=== PATIENT | female | born 1965 | race African-American/Black ===

== ENCOUNTER 2017-02-03 09:04 | Emergency (ER) | payer SELFPAY ==
[2017-02-03 09:07] VITALS: BP 154/82; BMI 33.2
--- NOTE | 2017-02-03 09:28 | DR.DIARMA ---
HPI - Time seen Time seen: 09:15 - PCP Primary Care Physician: Selina FREED - Complaint Chief Complaint Doctor Comments: Patient states that she has pancreatitis. She stayed off work last week due to diarrhea and went back today. She admits to diarrhea x3 and epigastric pain and not feeling well today. She denies fever or vomiting but admits to nausea. She states that she has had pancreatitis since 2005, EGI done by dr Frazier in and . She is on no medication at this time. Chief Complaint:: PT. C/O NAUSEA, ABDOMINAL PAIN, AND DIARRHEA. DIARRHEA BEGAN SUNDAY. - Source History Provided: Patient - Mode of Arrival Mode of Arrival: Ambulatory - Timing Onset of Chief Complaint: 01/30/17 PMH - PMH Past Medical History: Yes Past Medical History: Anemia, Arthritis, Diabetes, Dyslipidemia, GERD, Hypertension Past Medical History Comment: PANCREATITIS Past Surgical History: Yes Surgical History: Cholecystectomy, Ortho Surgery - Family History History of Family Medical Conditions: Yes Family Medical History: Diabetes Mellitus, Cancer, [place], Hypertension - Social History Does patient currently use any type of tobacco product: Yes Have you used tobacco products in the last 12 months: Yes Type of Tobacco Use: Cigarettes Does any household member use tobacco: No Alcohol Use: None Do you use any recreational Drugs:: No Lives With: Family Lives Where: Home - infectious screening In the last 2 months have you had wt loss of >10#?: NO Have you had fever, night sweats or hemotysis?: No Have you traveled outside the country in the last 6 months?: No Isolation: Standard PE - Vital Signs Vitals: Temperature 98.6 F Pulse Rate 107 Respiratory Rate 17 Blood Pressure [Left Arm] 136/66 Blood Pressure [Right Arm] 142/65 Blood Pressure 154/82 O2 Sat by Pulse Oximetry 100 ROR - Labs Reviewed Result Diagrams: 02/03/17 09:35 02/03/17 09:35 - Discharge Plan Condition: Stable - Follow ups/Referrals Follow ups/Referrals: POLY FREED [Primary Care Provider] - 3 days - Instructions
[2017-02-03] MEDS ORDERED: NS 1000 ML 1,000 ML IV ONE (09:30)
[2017-02-03] MEDS ORDERED: MORPHINE SULFATE INJ 4 MG IVP ONE ×2 (09:30→10:45)
[2017-02-03] MEDS ORDERED: NS 1000 ML 1,000 ML ONE (09:31)
[2017-02-03] MEDS ORDERED: MORPHINE SULFATE INJ 4 MG ONE ×2 (09:32→10:46)
[2017-02-03] MEDS ORDERED: ZOFRAN INJ 4 MG VIAL ONE (09:40)
[2017-02-03] MEDS ORDERED: ZOFRAN INJ 4 MG VIAL IVP ONE (09:42)
[2017-02-03 09:44] LABS: BASOPHILS % (AUTO) 0.7 % (0.2-1.0); EOSINOPHILS # (AUTO) 0.2 x10^3/uL (0.0-0.2); EOSINOPHILS % (AUTO) 2.4 % (0.9-2.9); HEMOGLOBIN 14.6 g/dL (12.0-16.0); LYMPHOCYTES # (AUTO) 1.6 X10^3/uL (1.3-2.9); LYMPHOCYTES % (AUTO) 24.5 % (21.0-51.0); MEAN CORPUSCULAR HEMOGLOBIN 23.2 pg (27.0-34.0); MEAN CORPUSCULAR HGB CONC 32.4 g/dL (33.0-35.0); MEAN CORPUSCULAR VOLUME 71.6 fL (80.0-100.0); MEAN PLATELET VOLUME 8.6 fL (7.4-11.0); MONOCYTES # (AUTO) 0.5 x10^3/uL (0.3-0.8); MONOCYTES % (AUTO) 7.9 % (0.0-13.0); NEUTROPHILS # (AUTO) 4.3 x10^3/uL (2.2-4.8); NEUTROPHILS % (AUTO) 64.5 % (42.0-75.0); PLATELET COUNT 328 X10^3/uL (150.0-450.0); RED BLOOD COUNT 6.28 X10^6/uL (3.5-5.4); RED CELL DISTRIBUTION WIDTH 14.4 % (11.6-16.5); WHITE BLOOD COUNT 6.7 X10^3/uL (3.6-10.0)
[2017-02-03 10:11] LABS: HYPOCHROMASIA SLIGHT; PLATELET MORPHOLOGY COMMENT NORMAL (NORMAL)
[2017-02-03 10:29] LABS: ALANINE AMINOTRANSFERASE 18 Units/L (12-78); ALBUMIN 3.7 g/dL (3.4-5.0); ALKALINE PHOSPHATASE 140 Units/L (46-116); AMYLASE 57 Units/L (25-115); ASPARTATE AMINO TRANSFERASE 11 Units/L (15-37); BLOOD UREA NITROGEN 14 mg/dL (7-18); CALCIUM 8.8 mg/dL (8.5-10.1); CARBON DIOXIDE 24.3 mmol/L (21-32); CHLORIDE 105 mmol/L (98-107); COR NA(FOR HYPERGLY) 146 mmol/L (136-145); CREATININE 0.78 mg/dL (0.55-1.02); GLUCOSE 250 mg/dL (65-99); LIPASE 99 Units/L (73-393); SODIUM 142 mmol/L (136-145); TOTAL PROTEIN 8.2 g/dL (6.4-8.2); eGFR BLACK RACES > 60 (>60); eGFR NON BLACK RACES > 60 (>60)
[2017-02-03] MEDS ORDERED: NS 100 ML IV + SPIKE MINIBAG* 100 ML IV ONE (10:53)
--- NOTE | 2017-02-03 15:09 | CT ---
The CT abdomen and pelvis with contrast Indication: Abdominal pain Comparison: 10/18/2012 Technique: Multiple axial images of the abdomen and pelvis were obtained from the lung bases to the pubic symph ysis after the administration of IV contrast. Coronal and sagittal reformatted images were also pro vided. Radiation dose reduction techniques were performed utilizing adjustment for MA/kVP based on patient body size. Findings: The lung bases are clear. There is a rounded area of hypoattenuation within the anterior aspect of t he medial hepatic segment measuring 11 mm on axial image 35 which is indeterminate potentially repre senting focal fatty infiltration versus hepatic lesion which appears unchanged from prior exam. No n ew hepatic lesion. There is mild intrahepatic and extrahepatic bile duct dilatation without obstruct ing stone or mass identified. Previous cholecystectomy is noted. The spleen, pancreas and adrenal gl ands are normal. Neither kidney demonstrates evidence of nephrolithiasis, hydronephrosis or mass. Up per GI tract demonstrates diffuse fluid distension of the small bowel and stomach. No significant di latation. The rectum contains moderate amount of fluid with slight increased mucosal enhancement thr oughout the rectum and colon the appendix is within normal limits. The contour of the uterine fundus is slightly lobulated representing either an abnormal morphologic appearance of the uterus versus a pedunculated uterine fibroid . No adnexal cyst or mass. Trace amou nt of pelvic free fluid is noted . Abdominal aorta is normal in caliber with scattered calcified ath erosclerotic disease. Mildly enlarged mesenteric lymph nodes are noted for example on axial image 44 . Review of bone windows demonstrates no acute osseous abnormality . Impression: 1.Fluid distension and increased mucosal enhancement of the stomach, small bowel , colon and rectum consistent with an acute gastroenterocolitis with associated diarrhea . No evidence of obstruction . Enlarged mesenteric lymph nodes are likely reactive. 2. Mild intrahepatic and extrahepatic bile duct dilatation without obstructing stone or mass, intrah epatic bile duct dilatation is not usually present with patients who have had prior cholecystectomy and correlation with cholestatic function test is recommended . 3. Indeterminate small hypoattenuating lesion within the medial hepatic segment , the lesion is unch anged in size dating back to 2012 suggesting benignity. Reported By:
== END 2017-02-03 15:33 | disposition home or self-care (01) ==
LOC: ER 09:09
DX: R10.13 Epigastric pain (principal)
CPT/HCPCS: 36415; 74177; 80053; 82150; 83690; 85025; 86140; 86677; 96367; 96374; 96375; 99283; A4222; J2270; J2405

== ENCOUNTER → 2017-02-20 | Outpatient (CLI) | payer SELFPAY ==
[2017-02-03 09:07] VITALS: BP 154/82
[2017-02-20 08:44] LABS: BASOPHILS # (AUTO) 0.1 X10^3/uL (0.0-0.1); BASOPHILS % (AUTO) 0.8 % (0.2-1.0); EOSINOPHILS # (AUTO) 0.2 x10^3/uL (0.0-0.2); EOSINOPHILS % (AUTO) 3.1 % (0.9-2.9); HEMATOCRIT 42.7 % (36.0-47.0); HEMOGLOBIN 13.7 g/dL (12.0-16.0); LYMPHOCYTES # (AUTO) 1.9 X10^3/uL (1.3-2.9); LYMPHOCYTES % (AUTO) 26.2 % (21.0-51.0); MEAN CORPUSCULAR VOLUME 71.9 fL (80.0-100.0); MEAN PLATELET VOLUME 8.6 fL (7.4-11.0); MONOCYTES # (AUTO) 0.6 x10^3/uL (0.3-0.8); MONOCYTES % (AUTO) 8.7 % (0.0-13.0); NEUTROPHILS # (AUTO) 4.4 x10^3/uL (2.2-4.8); NEUTROPHILS % (AUTO) 61.2 % (42.0-75.0); PLATELET COUNT 327 X10^3/uL (150.0-450.0); RED BLOOD COUNT 5.93 X10^6/uL (3.5-5.4); RED CELL DISTRIBUTION WIDTH 14.8 % (11.6-16.5); WHITE BLOOD COUNT 7.2 X10^3/uL (3.6-10.0)
[2017-02-20 09:12] LABS: ALANINE AMINOTRANSFERASE 17 Units/L (12-78); ALBUMIN 3.6 g/dL (3.4-5.0); ALKALINE PHOSPHATASE 131 Units/L (46-116); ASPARTATE AMINO TRANSFERASE < 6 Units/L (15-37); BILIRUBIN,DIRECT 0.06 mg/dL (0-0.2); BLOOD UREA NITROGEN 18 mg/dL (7-18); CARBON DIOXIDE 29.5 mmol/L (21-32); CHLORIDE 102 mmol/L (98-107); CHOL/HDL RATIO 5.9 (0.0-5.0); CHOLESTEROL 214 mg/dL (0-200); COR NA(FOR HYPERGLY) 144 mmol/L (136-145); CREATININE 0.74 mg/dL (0.55-1.02); GLUCOSE 304 mg/dL (65-99); HDL CHOLESTEROL 36 mg/dL (40-60); HEMOGLOBIN A1C 11.5 % (4.5-6.2); SODIUM 139 mmol/L (136-145); TOTAL PROTEIN 7.9 g/dL (6.4-8.2); TRIGLYCERIDES 163 mg/dL (0-150); eGFR BLACK RACES > 60 (>60); eGFR NON BLACK RACES > 60 (>60)
[2017-02-20 09:17] LABS: CREATININE,URINE 220.56 mg/dL (29-226); MICROALBUMIN,URINE 25.7 mg/L
[2017-02-20 09:50] LABS: HYPOCHROMASIA 1+; PLATELET MORPHOLOGY COMMENT NORMAL (NORMAL)
== END ==
LOC: LAB 08:19
PROVIDERS: ATTEND Nurse Practitioner Family
DX: E11.69 Type 2 diabetes mellitus with other specified complication (principal); R10.11 Right upper quadrant pain
CPT/HCPCS: 36415; 80048; 80061; 80076; 82043; 83036; 85025

== ENCOUNTER → 2017-06-21 | Outpatient (CLI) | payer SELFPAY ==
[2017-06-21 08:17] LABS: BASOPHILS % (AUTO) 0.5 % (0.2-1.0); EOSINOPHILS # (AUTO) 0.3 x10^3/uL (0.0-0.2); EOSINOPHILS % (AUTO) 4.1 % (0.9-2.9); HEMATOCRIT 39.9 % (36.0-47.0); HEMOGLOBIN 12.9 g/dL (12.0-16.0); LYMPHOCYTES # (AUTO) 1.8 X10^3/uL (1.3-2.9); LYMPHOCYTES % (AUTO) 24.8 % (21.0-51.0); MEAN CORPUSCULAR HEMOGLOBIN 23.4 pg (27.0-34.0); MEAN CORPUSCULAR HGB CONC 32.3 g/dL (33.0-35.0); MEAN CORPUSCULAR VOLUME 72.4 fL (80.0-100.0); MEAN PLATELET VOLUME 8.7 fL (7.4-11.0); MONOCYTES # (AUTO) 0.4 x10^3/uL (0.3-0.8); NEUTROPHILS # (AUTO) 4.6 x10^3/uL (2.2-4.8); NEUTROPHILS % (AUTO) 64.6 % (42.0-75.0); PLATELET COUNT 307 X10^3/uL (150.0-450.0); RED BLOOD COUNT 5.52 X10^6/uL (3.5-5.4); RED CELL DISTRIBUTION WIDTH 14.7 % (11.6-16.5); WHITE BLOOD COUNT 7.1 X10^3/uL (3.6-10.0)
[2017-06-21 08:24] LABS: HEMOGLOBIN A1C 8.2 % (4.5-6.2)
[2017-06-21 08:25] LABS: HYPOCHROMASIA SLIGHT; MICROCYTOSIS SLIGHT; PLATELET MORPHOLOGY COMMENT NORMAL (NORMAL)
[2017-06-21 08:30] LABS: CREATININE,URINE 153.31 mg/dL (29-226); MICROALBUMIN,URINE 11.5 mg/L
[2017-06-21 08:35] LABS: ALANINE AMINOTRANSFERASE 20 Units/L (12-78); ALBUMIN 3.5 g/dL (3.4-5.0); ALKALINE PHOSPHATASE 108 Units/L (46-116); ASPARTATE AMINO TRANSFERASE 14 Units/L (15-37); BILIRUBIN,DIRECT 0.07 mg/dL (0-0.2); BLOOD UREA NITROGEN 12 mg/dL (7-18); CARBON DIOXIDE 30.7 mmol/L (21-32); CHLORIDE 104 mmol/L (98-107); CHOL/HDL RATIO 4.3 (0.0-5.0); CHOLESTEROL 153 mg/dL (0-200); COR NA(FOR HYPERGLY) 142 mmol/L (136-145); CREATININE 0.71 mg/dL (0.55-1.02); HDL CHOLESTEROL 36 mg/dL (40-60); SODIUM 140 mmol/L (136-145); TOTAL PROTEIN 7.6 g/dL (6.4-8.2); TRIGLYCERIDES 93 mg/dL (0-150); eGFR BLACK RACES > 60 (>60); eGFR NON BLACK RACES > 60 (>60)
== END ==
LOC: LAB 07:35
PROVIDERS: ATTEND Nurse Practitioner Family
DX: I10 Essential (primary) hypertension (principal); E11.9 Type 2 diabetes mellitus without complications; E78.4 Other hyperlipidemia
CPT/HCPCS: 36415; 80048; 80061; 80076; 82043; 83036; 85025

== ENCOUNTER 2017-09-20 13:03 | Emergency (ER) | payer SELFPAY ==
[2017-09-20 13:13] VITALS: BP 141/70; BMI 34.2
[2017-09-20] MEDS ORDERED: TORADOL 60 MG VIAL ONE (13:35)
[2017-09-20] MEDS ORDERED: TORADOL 60 MG VIAL IM ONE (13:35)
--- NOTE | 2017-09-20 13:44 | DR.EXTPAIN ---
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 She has had intra-articular injection of the left should joint by ortho in the past. Today patient complains of both shoulder and arms hurting. The pain is sharp, 8/10, aggravated by motion; duration years with recent exacerbation. Chief Complaint:: PT C/O ACHING AND LEFT SHOULDER AND LEFT NECK AND LEFT CHEST PAIN ".. PT HAS VESICLES TO HER RIGHT CHEST WALL THAT LOOKS SUPICIOUS FOR SHINGLES ,,, PT HAS A HX OF SHINGLES .. - Source History Provided: Patient - Mode of arrival Mode of Arrival: Ambulatory - Timing Onset of Chief Complaint: 09/15/17 - Associated signs and symptoms Associated Signs and Symptoms: None PMH - PMH Past Medical History: Yes Past Medical History: Anemia, Arthritis, Diabetes, Dyslipidemia, GERD, Hypertension Past Surgical History: Yes Surgical History: Cholecystectomy, Ortho Surgery - Family History History of Family Medical Conditions: Yes Family Medical History: Diabetes Mellitus, Cancer, [place], Hypertension - Social History Does patient currently use any type of tobacco product: Yes Have you used tobacco products in the last 12 months: Yes Type of Tobacco Use: Cigarettes How many years tobacco product used: 12 Does any household member use tobacco: No Alcohol Use: None Do you use any recreational Drugs:: No Lives With: Family Lives Where: Home - infectious screening In the last 2 months have you had wt loss of >10#?: NO Have you had fever, night sweats or hemotysis?: No Have you traveled outside the country in the last 6 months?: No Isolation: Standard ROS - Review of Systems Eyes: No Symptoms Reported ENTM: No Symptoms Reported Respiratoy: No Symptoms Reported Cardiovascular: No Symptoms Reported Gastrointestinal/Abdominal: No Symptoms Reported Genitourinary: No Symptoms Reported Neurological: No Symptoms Reported Musculoskeletal: Neck Pain, Shoulder (bilateral) Integumentary: No Symptoms Reported Hematologic/Lymphatic: No Symptoms Reported Endocrine: No Symptoms Reported Psychiatric: No Symptoms Reported All Other Systems: Reviewed and Negative PE - Vital Signs Vitals: Temperature 96.9 F Pulse Rate 107 Respiratory Rate 20 Blood Pressure [Left Arm] 136/66 Blood Pressure [Right Arm] 142/65 Blood Pressure 141/70 O2 Sat by Pulse Oximetry 99 - General Limitations: No Limitations General Appearance: Alert - Head Head Exam: Normal Inspection - Eyes Eye exam: Normal Appearance - ENT ENT Exam: Normal Exam - Neck Neck Exam: Normal Inspection, Full ROM - Chest Chest Inspection: Normal Inspection - Respiratory Respiratory Exam: Normal Lung Sounds Bilat Respiratory Exam: Bilateral Clear to Auscultation - Cardiovascular Cardiovascular Exam: Regular Rate, Normal Rhythm - Abdominal Exam Abdominal Exam: Normal Inspection Abdominal Tenderness: negative: RUQ, RLQ, LUQ, LLQ, Epigastrium, Suprapubic, Diffuse, Mild, Moderate, Severe, Other - Extremities Extremities Exam: Normal Inspection, Full ROM - Upper Extremities Shoulder Exam: Normal Inspection, Tenderness, Tenderness over AC Joint Arm Exam: Normal Inspection, Full ROM Elbow Exam: Normal Inspection Forearm Exam: Normal Inspection, Full ROM Hand Exam: Normal Inspection Neuromotor Exam: Normal Exam Neurosensory Exam: Normal Exam Hand Tendon Exam: Flexor Digitorium Profundus (Location) Upper Ext. Vascular Exam: Capillary Refill - Lower Extremities Hip/Pelvis Exam: Normal Inspection Upper Leg Exam: Normal Inspection Knee Exam: Normal Inspection Lower Leg Exam: Normal Inspection Ankle Exam: Normal Inspection Foot/Toe Exam: Normal Inspection Neurovascular/Tendon Exam: Other (bilateral shoulder and neck pain) Gait Exam: Observed and Normal - Back Back Exam: Normal Inspection - Neurological Neurological Exam: Alert, Oriented X3, CN II-XII Intact - Psychiatric Psychiatric Exam: Normal Affect - Skin Skin Exam: Warm, Dry, Intact Distribution: Generalized - Diagnosis Discharge Problem: Neuropathic pain of shoulder Qualifiers: Laterality: right Qualified Code(s): G56.91 - Unspecified mononeuropathy of right upper limb - Discharge Plan Condition: Stable - Follow ups/Referrals Follow ups/Referrals: JOSE ANTONIO BAH [Primary Care Provider] - 3 days - Instructions
== END 2017-09-20 14:00 | disposition home or self-care (01) ==
LOC: ER 13:15
DX: G56.91 Unspecified mononeuropathy of right upper limb (principal)
CPT/HCPCS: 96372; 99282; J1885

== ENCOUNTER → 2018-01-21 | Outpatient (CLI) | payer BC ==
--- NOTE | 2018-01-21 14:07 | VAS ---
HISTORY: Concern for carotid artery stenosis. Diabetes. Technique: Multiple perdue scale and color flow Doppler images of the right and left carotid arterial s ystem were obtained. The vertebral arterial system was evaluated as well. Findings: Nonocclusive color flow Doppler is seen throughout the right and left carotid arterial system. No hem odynamically significant carotid arterial stenosis is seen based on velocity criteria. There is mild bilateral intimal thickening but without evidence for high-grade stenosis (>70%) or occlusion of the carotid arteries. The right and left vertebral artery demonstrate antegrade flow. IMPRESSION: Mild bilateral carotid intimal thickening but without evidence for high-grade stenosis or occlusion o f the carotid arteries, based on Doppler velocity criteria. Appropriate, antegrade, vertebral arterial flow. Reported By:
== END ==
LOC: RAD 10:58
PROVIDERS: ATTEND Psychiatry & Neurology Neurology
DX: E11.40 Type 2 diabetes mellitus with diabetic neuropathy, unspecified (principal); E11.69 Type 2 diabetes mellitus with other specified complication; M79.89 Other specified soft tissue disorders; R09.89 Other specified symptoms and signs involving the circulatory and respiratory systems
CPT/HCPCS: 93880

== ENCOUNTER → 2018-02-07 | Outpatient (CLI) | payer BC ==
--- NOTE | 2018-02-08 09:03 | VAS ---
History: Diabetes, paresthesias in the lower extremities, right foot pain Study: Segmental pressures lower extremities Findings: The systolic pressure within the right brachial artery was 141 mm Hg, on the left 150 mm Hg. Segmenta l pressures were obtained in the proximal and distal thigh, proximal and distal leg. On the right, the upper thigh ROCK is 1.0, the lower thigh ABIs 1.1, the proximal calf 1.00 the ROCK at the right ankle at the dorsalis pedis is 0.84, at the posterior tibial was 0.86. Monophasic waveform s were noted from the popliteal artery distally on the right. On the left, the ROCK in the upper thigh was 1.0, at the lower thigh at 1.0, in the proximal calf 1.0, at the left ankle (dorsalis pedis (0.91), (posterior tibial ) 0.89. Again monophasic waveforms were seen from the popliteal artery distally. Impression: The changes seen with suggest small vessel disease within the legs. There is the suggestion of mild t o moderate atherosclerotic change at the ankles bilaterally. Reported By:
== END ==
LOC: RAD 15:35
PROVIDERS: ATTEND Psychiatry & Neurology Neurology
DX: E11.49 Type 2 diabetes mellitus with other diabetic neurological complication (principal); E11.69 Type 2 diabetes mellitus with other specified complication
CPT/HCPCS: 93923

== ENCOUNTER 2021-01-03 00:34 | Inpatient (IN) ==
--- NOTE | 2021-01-03 01:07 | ED.ABDFE ---
HPI Time Seen Time Seen by Provider: 01/03/21 01:04 PCP Primary Care Physician: CASI HPI Comment HPI Comment: PATIENT IS 55YR OLD FEMALE IN ER WITH UPPER ABDOMINAL PAIN WITH NAUSEA AND VOMITING TIMES ONE DAY. PAIN IS SHARP AND BURNING 8/10 IN UPPER A BDOMEN RADIATING TO THE BACK. NO FEVER OR DYSURIA. DENIES CONTACT ITH PATIENT WITH SIMILAR SYMPTOMS. HISTORY PANCREATITIS. PAIN SIMILAR TO PANCREATITIS PAIN. Complaint Chief Complaint:: PT AMBULATORY IN ED WITH C/O ABD PAIN THROUGH TO BACK. STATES SHE HAS HAD PANCREATITIS IN THE PAST AND IT FEEL THE SAME NOW. COVID-19 Coronavirus risk:travel/contact w/high risk person: No Has patient experienced Coronavirus symptoms: No Reviewed Nurses Notes Review: Yes Source History Provided: Patient Mode of arrival Mode of Arrival: Ambulatory Timing Onset of Chief Complaint: 01/02/21 Came on: Suddenly Duration Since Onset: Constant Duration: Days Location Location: RUQ, LUQ and Epigastric Severity Severity: Moderate Quality Quality: Burning and Sharp Context History of: Similar pain (dx) Modifying factors Worsening Factors: Exertion Associated signs and symptoms Associated Signs and Symptoms: Nausea and Vomiting; denies Diarrhea and Constipation PMH PMH Past Medical History: Yes Past Medical History: Anemia, Arthritis, Diabetes, Dyslipidemia, GERD and Hypertension Past Surgical History: Yes Surgical History: Cholecystectomy and Ortho Surgery Family History History of Family Medical Conditions: Yes Family Medical History: Diabetes Mellitus, Cancer, [place] and Hypertension Social History Does patient currently use any type of tobacco product: Yes Have you used tobacco products in the last 12 months: Yes Type of Tobacco Use: Cigarettes Does any household member use tobacco: No Alcohol Use: None Do you use any recreational Drugs:: No Lives With: Family Lives Where: Home Travel Risk Coronavirus risk:travel/contact w/high risk person: No Has patient experienced Coronavirus symptoms: No Infectious screening In the last 2 months have you had wt loss of >10#?: NO Have you had fever, night sweats or hemotysis?: No Have you traveled outside the country in the last 6 months?: No Isolation: Standard ROS Review of Systems Constitutional: See HPI, Weakness and Fatigue; negative Fever Eyes: No Symptoms Reported and See HPI ENTM: No Symptoms Reported and See HPI; negative Nose Discharge and Nose Congestion Respiratoy: No Symptoms Reported and See HPI; negative Moist Cough, Short of Breath and Wheezing Cardiovascular: No Symptoms Reported and See HPI; negative Chest Pain Gastrointestinal/Abdominal: See HPI, Abdominal Pain, Nausea and Vomiting; negative Diarrhea Genitourinary: No Symptoms Reported and See HPI; negative Dysuria, Frequency and Hematuria Neurological: See HPI and Weakness; negative Headache and Dizziness Musculoskeletal: No Symptoms Reported and See HPI; negative Back Pain Integumentary: No Symptoms Reported and See HPI; negative Change in Color, Rash and Juandice Hematologic/Lymphatic: No Symptoms Reported and See HPI; negative Easy Bruising and Swollen Glands Endocrine: No Symptoms Reported and See HPI; negative Increased Thirst and Increased Urine Psychiatric: No Symptoms Reported and See HPI All Other Systems: Reviewed and Negative PE Vital Signs Vitals: Temperature 98.1 F Pulse Rate 102 Respiratory Rate 20 Blood Pressure [Left Arm] 136/72 Blood Pressure 125/63 O2 Sat by Pulse Oximetry 100 General Limitations: No Limitations and Language Barrier General Appearance: Alert and In No Apparent Distress Head Head Exam: Normal Inspection and Atraumatic Eyes Eye exam: Normal Appearance and PERRL; negative Scleral Icterus and Conjunctival Injection ENT ENT Exam: Normal Exam, Normal Oropharynx, Normal External Ear Exam and TM's Normal Bilaterally Neck Neck Exam: Normal Inspection and Trachea Midline; negative Tenderness and Lymphadenopathy Chest Chest Inspection: Normal Inspection and Symmetric Chest Wall Rise; negative Tenderness Respiratory Respiratory Exam: Normal Lung Sounds Bilat; negative Accessory Muscle Use, Chest Wall Tenderness and Respiratory Distress Respiratory Exam: Bilateral: Clear to Auscultation Cardiovascular Cardiovascular Exam: Regular Rate, Normal Rhythm and Normal Heart Sounds; negative Systolic Murmur and Diastolic Murmur Abdominal Exam Abdominal Exam: Normal Bowel Sounds and Tenderness Abdominal Tenderness: Diffuse and Moderate Rectal Rectal Exam: Deferred Back Back Exam: Normal Inspection; negative (R) CVA Tenderness and (L) CVA Tenderness Extremeties Extremities Exam: Normal Inspection; negative Tenderness, Normal Capillary Refill, Edema and Calf Tenderness External Exam: Female: Deferred : Speculum Exam (Female): Deferred : Bimanual Exam (female): Deferred Neurologic Neurological Exam: Alert, Oriented X3 and CN II-XII Intact; negative Motor Sensory Deficit Psychiatric Psychiatric Exam: Normal Affect and Normal Mood Skin Skin Exam: Dry MDM Additional Information Obtained From Additional information provided by: Old Records Differential Diagnosis Differential Diagnosis- Considerations may include:: Bowel Obstruction, Cholcy stitis, Cholelethiasis, Constipation, Diverticular disease, Gastritus/PUD, Inflammatory BD, Pancreatitis, Urinary tract infection and Urolithiasis COURSE Treatment Treatment: SEE ORDERS. ZOFRAN 4MG IV, DEMOROL 25MG IV, [id number] IVPB IN ER. PAIN IMPROVING Reevaluation 1st: Improved Consultation Consultation Comments: PATIENT ADMITTED TO DR. LANCE. Education/Counseling Education/Counseling: Patient Educated On: Diagnosis ROR Labs Reviewed Laboratory Results Reviewed?: Yes Result Diagrams: 01/04/21 04:35 01/04/21 04:35 Laboratory: WBC 8.5 X10^3/uL (3.6-10.0) 01/03/21 01:18 RBC 5.39 X10^6/uL (3.5-5.4) 01/03/21 01:18 Hgb 12.7 g/dL (12.0-16.0) 01/03/21 01:18 Hct 39.2 % (36.0-47.0) 01/03/21 01:18 MCV 72.7 fL (80.0-100.0) L 01/03/21 01:18 MCH 23.5 pg (27.0-34.0) L 01/03/21 01:18 MCHC 32.4 g/dL (33.0-35.0) L 01/03/21 01:18 RDW 14.4 % (11.6-16.5) 01/03/21 01:18 Plt Count 558 X10^3/uL (150.0-450.0) H 01/03/21 01:18 Plt Count Comment Increased (ADEQUATE) A 01/03/21 01:18 MPV 8.0 fL (7.4-11.0) 01/03/21 01:18 Neut % (Auto) 70.0 % (42.0-75.0) 01/03/21 01:18 Lymph % (Auto) 20.6 % (21.0-51.0) L 01/03/21 01:18 Randall % (Auto) 8.0 % (0.0-13.0) 01/03/21 01:18 Eos % (Auto) 0.7 % (0.9-2.9) L 01/03/21 01:18 Baso % (Auto) 0.7 % (0.2-1.0) 01/03/21 01:18 Neut # (Auto) 6.0 x10^3/uL (2.2-4.8) H 01/03/21 01:18 Lymph # (Auto) 1.7 X10^3/uL (1.3-2.9) 01/03/21 01:18 Randall # (Auto) 0.7 x10^3/uL (0.3-0.8) 01/03/21 01:18 Eos # (Auto) 0.1 x10^3/uL (0.0-0.2) 01/03/21 01:18 Baso # (Auto) 0.1 X10^3/uL (0.0-0.1) 01/03/21 01:18 Absolute Nucleated RBC 0.0 /100WBC 01/03/21 01:18 Plt Morphology Comment Normal (NORMAL) 01/03/21 01:18 RBC Morphology Abnormal (NORMAL) A 01/03/21 01:18 Microcytosis Slight A 01/03/21 01:18 Sodium 137 mmol/L (136-145) 01/03/21 01:18 Corrected Sodium 143 mmol/L (136-145) 01/03/21 01:18 Potassium 4.5 mmol/L (3.5-5.1) 01/03/21 01:18 Chloride 99 mmol/L (98-107) 01/03/21 01:18 Carbon Dioxide 24.2 mmol/L (21-32) 01/03/21 01:18 BUN 10 mg/dL (7-18) 01/03/21 01:18 Creatinine 0.84 mg/dL (0.55-1.02) 01/03/21 01:18 Est GFR (MDRD) Af Amer > 60 (>60) 01/03/21 01:18 Est GFR (MDRD) Non-Af > 60 (>60) 01/03/21 01:18 Glucose 363 mg/dL (65-99) H 01/03/21 01:18 Calcium 9.5 mg/dL (8.5-10.1) 01/03/21 01:18 Corrected Calcium 10.5 mg/dL (8.5-10.1) H 01/03/21 01:18 Total Bilirubin 0.30 mg/dL (0.2-1.0) 01/03/21 01:18 AST 9 Units/L (15-37) L 01/03/21 01:18 ALT 16 Units/L (12-78) 01/03/21 01:18 Alkaline Phosphatase 129 Units/L (46-116) H 01/03/21 01:18 Total Protein 8.2 g/dL (6.4-8.2) 01/03/21 01:18 Albumin 2.7 g/dL (3.4-5.0) L 01/03/21 01:18 Globulin 5.5 g/dL (2.5-4.5) H 01/03/21 01:18 Albumin/Globulin Ratio 0.5 Ratio (1.1-2.1) L 01/03/21 01:18 Triglycerides 75 mg/dL (0-150) 01/03/21 01:18 Cholesterol 105 mg/dL (0-200) 01/03/21 01:18 LDL Cholesterol, Calc 59 mg/dL (0-100) 01/03/21 01:18 HDL Cholesterol 31 mg/dL (40-60) L 01/03/21 01:18 Cholesterol/HDL Ratio 3.4 (0.0-5.0) 01/03/21 01:18 Amylase 83 Units/L (25-115) 01/03/21 01:18 Lipase 897 Units/L (73-393) H 01/03/21 01:18 Specimen Type Clean catch urine 01/03/21 01:44 Urine Color Yellow (YELLOW) 01/03/21 01:44 Urine Appearance Clear (CLEAR) 01/03/21 01:44 Urine pH 6.0 (5.0 - 8.0) 01/03/21 01:44 Ur Specific [place] 1.020 (1.000-1.030) 01/03/21 01:44 Urine Protein 2+ (NEGATIVE) 01/03/21 01:44 Urine Glucose (UA) 4+ (NEGATIVE) 01/03/21 01:44 Urine Ketones 4+ (NEGATIVE) 01/03/21 01:44 Urine Occult Blood 2+ (NEGATIVE) 01/03/21 01:44 Urine Nitrite Negative (NEGATIVE) 01/03/21 01:44 Urine Bilirubin Negative (NEGATIVE) 01/03/21 01:44 Urine Urobilinogen Normal (NORMAL) 01/03/21 01:44 Ur Leukocyte Esterase Negative (NEGATIVE) 01/03/21 01:44 Urine RBC 0-2 /HPF (0-3) 01/03/21 01:44 Urine WBC 3-5 /HPF (0-5) 01/03/21 01:44 Ur Squamous Epith Cells Few /HPF (NEGATIVE) 01/03/21 01:44 Urine Bacteria Trace /HPF (NEGATIVE) 01/03/21 01:44 Ur Culture Indicated? No/not indicated 01/03/21 01:44 SARS CoV-2 RNA Rapid RICK Negative (NEGATIVE) 01/03/21 03:07 XRAY XRAY Interpreted by: Radiologist (REPORT NOTED AND DISCUSSED WITH PATIENT.) and Self Opioid Opioid Risk Tool Age (Blaise box if 16-45): No History of Preadolescent Sexual Abuse: No Total: 0 Total Score Risk Category: Low Risk Copyright: Peter MOFFETT predicting aberrant behaviors Diagnosis Discharge Problem: Acute pancreatitis Qualifiers: Pancreatitis type: unspecified pancreatitis type Acute pancreatitis complication: unspecified Qualified Code(s): K85.90 - Acute pancreatitis without necrosis or infection, unspecified Abdominal pain Qualifiers: Abdominal location: unspecified location Qualified Code(s): R10.9 - Unspecified abdominal pain Instructions Instructions: Hand Washing, [id number] Acute Pancreatitis, [id number] Form - Daily Diabetes Record Abdominal Pain, Adult, [id number] Type 2 Diabetes Mellitus, Self Care, Adult, Nmdz-[id number] Nausea and Vomiting, Adult, [id number] Hypertension, [id number] Forms: Excuse From Work or School Precautions for COVID19 Patient Portal Social Distancing
[2021-01-03 01:26] LABS: BASOPHILS # (AUTO) 0.1 X10^3/uL (0.0-0.1); BASOPHILS % (AUTO) 0.7 % (0.2-1.0); EOSINOPHILS # (AUTO) 0.1 x10^3/uL (0.0-0.2); EOSINOPHILS % (AUTO) 0.7 % (0.9-2.9); HEMATOCRIT 39.2 % (36.0-47.0); HEMOGLOBIN 12.7 g/dL (12.0-16.0); LYMPHOCYTES # (AUTO) 1.7 X10^3/uL (1.3-2.9); LYMPHOCYTES % (AUTO) 20.6 % (21.0-51.0); MEAN CORPUSCULAR HEMOGLOBIN 23.5 pg (27.0-34.0); MEAN CORPUSCULAR HGB CONC 32.4 g/dL (33.0-35.0); MEAN CORPUSCULAR VOLUME 72.7 fL (80.0-100.0); MONOCYTES # (AUTO) 0.7 x10^3/uL (0.3-0.8); PLATELET COUNT 558 X10^3/uL (150.0-450.0); RED BLOOD COUNT 5.39 X10^6/uL (3.5-5.4); RED CELL DISTRIBUTION WIDTH 14.4 % (11.6-16.5); WHITE BLOOD COUNT 8.5 X10^3/uL (3.6-10.0)
[2021-01-03 01:36] LABS: ALANINE AMINOTRANSFERASE 16 Units/L (12-78); ALBUMIN 2.7 g/dL (3.4-5.0); ALKALINE PHOSPHATASE 129 Units/L (46-116); AMYLASE 83 Units/L (25-115); ASPARTATE AMINO TRANSFERASE 9 Units/L (15-37); BLOOD UREA NITROGEN 10 mg/dL (7-18); CALCIUM 9.5 mg/dL (8.5-10.1); CARBON DIOXIDE 24.2 mmol/L (21-32); CHLORIDE 99 mmol/L (98-107); COR CA(FOR HYPOALB) 10.5 mg/dL (8.5-10.1); COR NA(FOR HYPERGLY) 143 mmol/L (136-145); CREATININE 0.84 mg/dL (0.55-1.02); LIPASE 897 Units/L (73-393); SODIUM 137 mmol/L (136-145); TOTAL PROTEIN 8.2 g/dL (6.4-8.2); eGFR NON BLACK RACES > 60 (>60)
[2021-01-03 01:49] LABS: MICROCYTOSIS SLIGHT; PLATELET MORPHOLOGY COMMENT NORMAL (NORMAL)
[2021-01-03 02:26] LABS: BILIRUBIN,URINE NEGATIVE (NEGATIVE); BLOOD/HEMOGLOBIN,URINE 2+ (NEGATIVE); GLUCOSE, URINE 4+ (NEGATIVE); KETONES,URINE 4+ (NEGATIVE); LEUKOCYTE ESTERASE ,URINE NEGATIVE (NEGATIVE); NITRITES,URINE NEGATIVE (NEGATIVE); PROTEIN,URINE 2+ (NEGATIVE); UROBILINOGEN,URINE NORMAL (NORMAL)
[2021-01-03 03:00] LABS: APPEARANCE,URINE CLEAR (CLEAR); COLOR,URINE YELLOW (YELLOW)
[2021-01-03 03:01] LABS: BACTERIA,URINE TRACE /HPF (NEGATIVE); RBC,URINE 0-2 /HPF (0-3); SQUAMOUS EPITHELIAL CELL,UR FEW /HPF (NEGATIVE)
[2021-01-03] MEDS ORDERED: ZOFRAN INJ 4 MG VIAL IVP ONE (03:23)
[2021-01-03] MEDS ORDERED: DEMEROL INJ IVP ONE (03:23)
[2021-01-03] MEDS ORDERED: ZOFRAN INJ 4 MG VIAL ONE (03:32)
[2021-01-03] MEDS ORDERED: DEMEROL INJ ONE (03:32)
[2021-01-03] MEDS ORDERED: NS 1000 ML 1,000 ML ONE (03:32)
[2021-01-03] MEDS: NS 1000 ML 1,000 ML IV SCH ×4 (03:46→20:25)
[2021-01-03] MEDS ORDERED: PEPCID 20 MG IV PREMIX* 20 MG/50 ML BAG IV PRN (05:56)
[2021-01-03] MEDS ORDERED: ZOFRAN INJ 4 MG VIAL IVP PRN (05:56)
[2021-01-03 06:21] VITALS: BMI 26.9
[2021-01-03] MEDS ORDERED: SITAGLIPTIN METFORMIN PO SCH (09:00)
[2021-01-03] MEDS ORDERED: PREVACID PO SCH (09:00)
[2021-01-03 10:02] LABS: CHOL/HDL RATIO 3.4 (0.0-5.0)
[2021-01-03] MEDS: ASPIRIN EC 81 MG PO SCH (10:06)
[2021-01-03] MEDS: CYMBALTA PO SCH (10:06)
[2021-01-03] MEDS: LIPITOR TAB 40 MG PO SCH (10:07)
[2021-01-03] MEDS: ZESTRIL TAB 5 MG PO SCH (10:07)
[2021-01-03] MEDS: INVANZ INJ 1 GM VIAL 1 GM in NS 100 ML IV + SPIKE MINIBAG* 100 ML IV SCH (10:46)
[2021-01-03] MEDS: LOVENOX INJ 40 MG SYR SC SCH (10:47)
[2021-01-03] MEDS: PEPCID 20 MG IV PREMIX* 20 MG/50 ML BAG IV SCH ×2 (10:47→20:26)
[2021-01-03] MEDS: PROTONIX INJ 40 MG VIAL IVP SCH ×2 (10:55→20:28)
[2021-01-03] MEDS: DEMEROL INJ IVP PRN (10:56)
--- NOTE | 2021-01-03 11:16 | DR.H&P ---
H&P - History & Physical for Day of: H&P Date: 01/03/21 - Chief Complaint Chief Complaint: ABDOMINAL PAIN, NAUSEA, VOMITING, UPPER BACK PAIN - History of Present Illness History of Present Illness: IS A 55 YEAR OLD BLACK FEMALE. SHE IS A PATIENT OF OURS. SHE PRESENTED TO THE ER WITH COMPLAINTS OF EPIGASTRIC AND LUQ ABDOMINAL PAIN. SHE REPORTS THAT PAIN RADIATES TO THE UPPER BACK. SHE HAS HAD ASSOCIATED NAUSEA AND VOMITING. SYMPTOMS STARTED ONE DAY PRIOR. ON ARRIVAL, PAIN WAS DESCRIBED SHARP, BURNING, AND RATED A 10/10. SHE REPORTS A PMH OF PANCREATITIS, ANEMIA, ARTHRITIS, DIABETES, DYSLIPIDEMIA, GERD, HTN, AND CHOLECYSTECTOMY. EXAMINATION REVEALED MODERATE TENDERNESS TO PALPATION OF LEFT UPPER QUADRANT. ON ARRIVAL TO THE ER, VITALS WERE 98.6-032-72-100%-125/63. LABS WERE OBTAINED. ABNORMAL LAB VALUES INCLUDE THE FOLLOWING: PLT COUNT 558, GLUCOSE 363, AST 9, ALK PHOS 129, ALBUMIN 2.7, GLOBULIN 5.5, HCL 31, LIPASE 897. A FASTING LIPID PANEL WAS OBTAINED AND REVEALED: TRIGLYCERIDES 75, CHOLESTEROL 105, LDL 59, HCL 31. AN ABDOMEN/PELVIS CT WITH CONTRAST WAS OBTAINED AND REVEALED SUBTLE PERIPANCREATIC STRANDING RAISING THE POSSIBILITY OF ACUTE PANCREATITIS. IN THE ER, SHE WAS GIVEN DEMEROL 25MG IV X 1, ZOFRAN 4MG IV X 1. SHE REPORTED ONLY MILD IMPROVEMENT IN SYMPTOMS. SHE WAS ADMITTED TO THE HOSPITAL FOR FURTHER EVALUATION AND TREAMTENT OF ACUTE PANCREATITIS AND UPPER ABDOMINAL PAIN. SHE WAS STARTED ON NORMAL SALINE AT 125 ML/HR, INVANZ 1G IV DAILY, PEPCID 20MG IV Q12H, PROTONIX 40MG IV BID, LOVENOX 40MG SC DAILY, HUMULIN R SLIDING SCALE, LIPITOR 40MG PO DAILY, CYMBALTA 60MG PO DAILY, ZESTRIL 5MG PO DAILY, METFORMIN 1000MG PO DAILY, JANUVIA 50MG PO DAILY, DEMEROL 25MG IV Q6H PRN, ZOFRAN 4MG IV Q6H PRN. OTHERWISE, WE WILL FOLLOW UP WITH AM LABS AND CONTINUE TO MONITOR. TIME SPENT ON CLINICAL ASSESSMENT, REVIEWING LABS AND IMAGING, DECISION MAKING, DOCUMENTATION WAS GREATER THAN 75 MINUTES. - Past Medical History Past Medical History: Hypertension, Dyslipidemia, Diabetes, Anemia, GERD, Arthritis Additional Medical History: HX OF GLAUCOMA, BRONCHITIS, PNEUMONIA, PANCREATITIS, BACK PAIN - Past Surgical History Surgical History: Cholecystectomy, Ortho Surgery - Family History Family Medical History: Diabetes Mellitus, Cancer, [place], Hypertension - Social History Does patient currently use any type of tobacco product: Yes Have you used tobacco products in the last 12 months: Yes Type of Tobacco Use: Cigarettes How many years tobacco product used: 20 Does any household member use tobacco: No Alcohol Use: None Drug Use: None - Medications Home Medications: No Known Drug Allergies Allergy (Verified 06/05/18 07:24) CONTINUE taking the following medications aspirin 81 mg PO DAILY 01/03/21 [History] atorvastatin 40 mg PO HS 01/03/21 [History] duloxetine 60 mg PO DAILY 01/03/21 [History] insulin NPH isoph U-100 human [Novolin N NPH U-100 Insulin] 28 unit SUBCUT DAILY 01/03/21 [History] sitagliptin-metformin [Janumet XR] 1 tab PO DAILY 01/03/21 [History] - Review of Systems Constitutional: Weakness Eyes: No Symptoms Reported ENT: No Symptoms Reported Respiratory: No Symptoms Reported Cardiovascular: No Symptoms Reported Gastrointestinal: See HPI, Nausea, Vomiting, Abdominal Pain. denies: Diarrhea, Constipation, Hematochezia Genitourinary: No Symptoms Reported Musculoskeletal: No Symptoms Reported Skin: No Symptoms Reported Neurological: Weakness - Physical Exam Vital Signs: Temperature 98.1 F Pulse Rate [Right Brachial] 89 Pulse Rate 102 Respiratory Rate 18 Blood Pressure [Left Arm] 128/60 Blood Pressure 125/63 O2 Sat by Pulse Oximetry 100 Oriented: Normal Eyes: Normal Ear: Normal Nose: Normal Throat: Normal Respiratory: Diminished Throughout Cardiovascular: Normal. negative: S3, S4, Murmur : Normal Auscultation: Bowel Sounds: Normal Palpation: Normal Tenderness: Normal Skin: Normal Musculoskeletal: Normal Psychiatric: Normal Mood Description: Calm Affect: Normal Speech Pattern: Clear - Assessment/Plan (1) Pancreatitis Qualifiers: Chronicity: acute Pancreatitis type: unspecified pancreatitis type Acute pancreatitis complication: unspecified Qualified Code(s): K85.90 - Acute pancreatitis without necrosis or infection, unspecified Status: Acute Plan: ADMIT, NORMAL SALINE AT 125 ML/HR, INVANZ 1G IV DAILY, PEPCID 20MG IV Q12H, PROTONIX 40MG IV BID, LOVENOX 40MG SC DAILY, HUMULIN R SLIDING SCALE, LIPITOR 40MG PO DAILY, CYMBALTA 60MG PO DAILY, ZESTRIL 5MG PO DAILY, METFORMIN 1000MG PO DAILY, JANUVIA 50MG PO DAILY, DEMEROL 25MG IV Q6H PRN, ZOFRAN 4MG IV Q6H PRN. (2) Abdominal pain Qualifiers: Abdominal location: epigastric Qualified Code(s): R10.13 - Epigastric pain Status: Acute (3) History of anemia Status: Chronic (4) Diabetes type 2, uncontrolled Qualifiers: Glycemic state: with hyperglycemia Qualified Code(s): E11.65 - Type 2 diabetes mellitus with hyperglycemia Status: Chronic (5) Hyperlipidemia Qualifiers: Hyperlipidemia type: mixed hyperlipidemia Qualified Code(s): E78.2 - Mixed hyperlipidemia Status: Chronic (6) GERD (gastroesophageal reflux disease) Qualifiers: Esophagitis presence: esophagitis presence not specified Qualified Code(s): K21.9 - Gastro-esophageal reflux disease without esophagitis Status: Chronic (7) Hypertension Qualifiers: Hypertension type: essential hypertension Qualified Code(s): I10 - Essential (primary) hypertension Status: Chronic - Allergies Allergies/Adverse Reactions: Allergies Allergy/AdvReac Type Severity Reaction Status Date / Time No Known Drug Allergies Allergy Verified 06/05/18 07:24
[2021-01-03] MEDS: HumuLIN R SUBCUT PRN ×2 (12:00→14:14)
[2021-01-03] MEDS ORDERED: SNACK - Diabetic Appropriate PO SCH (20:00)
[2021-01-04] MEDS: DEMEROL INJ IVP PRN (01:08)
[2021-01-04] MEDS: NS 1000 ML 1,000 ML IV SCH (04:33)
[2021-01-04 05:26] LABS: BASOPHILS # (AUTO) 0.1 X10^3/uL (0.0-0.1); BASOPHILS % (AUTO) 0.7 % (0.2-1.0); EOSINOPHILS # (AUTO) 0.1 x10^3/uL (0.0-0.2); EOSINOPHILS % (AUTO) 1.8 % (0.9-2.9); HEMATOCRIT 36.9 % (36.0-47.0); HEMOGLOBIN 11.6 g/dL (12.0-16.0); LYMPHOCYTES # (AUTO) 2.2 X10^3/uL (1.3-2.9); LYMPHOCYTES % (AUTO) 31.9 % (21.0-51.0); MEAN CORPUSCULAR HEMOGLOBIN 22.9 pg (27.0-34.0); MEAN CORPUSCULAR HGB CONC 31.3 g/dL (33.0-35.0); MEAN CORPUSCULAR VOLUME 73.1 fL (80.0-100.0); MEAN PLATELET VOLUME 8.3 fL (7.4-11.0); MONOCYTES # (AUTO) 0.8 x10^3/uL (0.3-0.8); MONOCYTES % (AUTO) 10.9 % (0.0-13.0); NEUTROPHILS # (AUTO) 3.8 x10^3/uL (2.2-4.8); NEUTROPHILS % (AUTO) 54.7 % (42.0-75.0); PLATELET COUNT 495 X10^3/uL (150.0-450.0); RED BLOOD COUNT 5.05 X10^6/uL (3.5-5.4); RED CELL DISTRIBUTION WIDTH 14.3 % (11.6-16.5); WHITE BLOOD COUNT 6.9 X10^3/uL (3.6-10.0)
[2021-01-04 05:39] LABS: HYPOCHROMASIA 1+; MICROCYTOSIS SLIGHT; PLATELET MORPHOLOGY COMMENT NORMAL (NORMAL)
[2021-01-04 05:51] LABS: ALANINE AMINOTRANSFERASE 12 Units/L (12-78); ALBUMIN 2.1 g/dL (3.4-5.0); ALKALINE PHOSPHATASE 111 Units/L (46-116); AMYLASE 59 Units/L (25-115); ASPARTATE AMINO TRANSFERASE 8 Units/L (15-37); BLOOD UREA NITROGEN 8 mg/dL (7-18); CALCIUM 8.6 mg/dL (8.5-10.1); CARBON DIOXIDE 22.4 mmol/L (21-32); CHLORIDE 107 mmol/L (98-107); COR CA(FOR HYPOALB) 10.1 mg/dL (8.5-10.1); COR NA(FOR HYPERGLY) 143 mmol/L (136-145); CREATININE 0.57 mg/dL (0.55-1.02); LIPASE 385 Units/L (73-393); SODIUM 142 mmol/L (136-145); TOTAL PROTEIN 6.7 g/dL (6.4-8.2); eGFR NON BLACK RACES > 60 (>60)
[2021-01-04 08:01] VITALS: BP 168/76
[2021-01-04] MEDS ORDERED: JANUVIA PO SCH (09:00)
[2021-01-04] MEDS ORDERED: GLUCOPHAGE XR 24-HR PO SCH (09:00)
[2021-01-04] MEDS: PROTONIX INJ 40 MG VIAL IVP SCH (10:26)
[2021-01-04] MEDS: PEPCID 20 MG IV PREMIX* 20 MG/50 ML BAG IV SCH (10:27)
[2021-01-04] MEDS: CYMBALTA PO SCH (10:27)
[2021-01-04] MEDS: ASPIRIN EC 81 MG PO SCH (10:28)
[2021-01-04] MEDS: LIPITOR TAB 40 MG PO SCH (10:28)
[2021-01-04] MEDS: LOVENOX INJ 40 MG SYR SC SCH (10:28)
[2021-01-04] MEDS: ZESTRIL TAB 5 MG PO SCH (10:30)
[2021-01-04] MEDS: INVANZ INJ 1 GM VIAL 1 GM in NS 100 ML IV + SPIKE MINIBAG* 100 ML IV SCH (11:26)
== END 2021-01-04 13:15 | disposition home or self-care (01) | DRG 440 ==
LOC: ER 00:35 → MED/SURG 05:25 → INTOOBSV 05:25 → OBSVTOIN 05:25 → MED/SURG 05:46
PROVIDERS: ADMIT Internal Medicine; ATTEND Internal Medicine
DX: R11.2 Nausea with vomiting, unspecified; I10 Essential (primary) hypertension; E78.2 Mixed hyperlipidemia; K21.9 Gastro-esophageal reflux disease without esophagitis; K85.90 Acute pancreatitis without necrosis or infection, unspecified; E11.65 Type 2 diabetes mellitus with hyperglycemia; R10.12 Left upper quadrant pain